=== PATIENT | male | born 1980 | race African-American/Black ===

== ENCOUNTER 2017-01-17 09:12 | Emergency (ER) | payer OTHER ==
--- NOTE | ~2017-01-17 | CR181 ---
[facility]. [facility] A Service of [facility] & [facility] RADIOLOGY TEXT RESULTS PATIENT: ANKITA FRANCISCO LOCATION: SED : 80 UNIT #: [id number] AGE: [address]: Cj Cotter MD SEX: M ORDER DR: [id number] [address] [id number] E MR#: [id number] Acc #: [id number] NAME: ANKITA FRANCISCO : 1980 SEX: M STUDY DATE/TIME: 01/17/2017 9:41 UNIT: SED ROOM: STUDY DESCRIPTION: CR Lumbar Spine 2 or 3 Views Attending Physician: Cj Cotter M.D. Ordering Physician: Cj Cotter M.D. MEDICAL IMAGING REPORT This report is preliminary unless electronic signature is present. EXAM Lumbar spine series. HISTORY Low back pain after bending over and feeling a pinch 3-4 days ago. TECHNIQUE Three views of the lumbar spine were obtained. FINDINGS There is a tiny anterior osteophyte at L2-3. Alignment is normal. Disc space heights are preserved. No pars defects or destructive bone lesions are seen and no fractures are noted. IMPRESSION Minimal degenerative change at L2-3 with a small anterior osteophyte. Otherwise negative. Dictated by... Paul Li M.D. THIS IS AN ELECTRONICALLY VERIFIED REPORT Paul Li M.D. at 01/18/2017 10:29 AM DEBRA/allie TD: 01/17/2017 12:20 JOB #: [id number] MEDICAL IMAGING REPORT Page 1 of 1
[2017-01-17] MEDS ORDERED: NO MEDICATIONS (09:24)
== END 2017-01-17 10:06 | disposition home or self-care (01) ==
LOC: SED 09:12
DX: S39.012A Strain of muscle, fascia and tendon of lower back, initial encounter (principal); X58.XXXA Exposure to other specified factors, initial encounter
CPT/HCPCS: 72100; 96372; 99283; J1885